=== PATIENT | female | born 1995 | race Caucasian/White ===

== ENCOUNTER 2019-01-10 08:52 | Emergency (ER) | payer BC ==
[2019-01-10 09:02] VITALS: BP 115/83
--- NOTE | 2019-01-10 09:55 | UC ---
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 Two days ago she had sudden onset of malaise, felt syncopal and vomited profusely. onset of watery diarrhea shortly after, with up to 10 loose watery stools per day, without associated blood pr mucous. She has used imodium 2 tabs x 2 doses without decrease, and has stayed on a liquid diet without improvement. Feels hungry. - History of Current Complaint Chief Complaint: UCGI Stated Complaint: GI ISSUES Time Seen by Provider: 01/10/19 09:44 Hx Obtained From: Patient Hx Last Menstrual Period: 01/03/19 Onset/Duration: Sudden Onset Timing: Intermittent Episodes Lasting: - minutes Onset Severity: Moderate Pain Intensity: 3 Associated Signs & Symptoms: Positive: Decreased Oral Intake, Nausea - Allergy/Home Medications Allergies/Adverse Reactions: Allergies Allergy/AdvReac Type Severity Reaction Status Date / Time latex Allergy Intermediate Itching Verified 01/10/19 09:02 Home Medications: Home Medications Etonogestrel [Nexplanon] 68 mg IMPLANT ONCE 01/10/19 [History Confirmed 01/10/19 ] Omeprazole 20 mg PO DAILY WITH MEAL 01/10/19 [History Confirmed 01/10/19] PMH/Surg Hx/FS Hx/Imm Hx Previously Healthy: Yes GI/ History: Gastroesophageal Reflux - Surgical History Surgical History: None - Family History Known Family History: Positive: Non-Contributory - Social History Occupation: Student Lives: Dormitory/Roommates Alcohol Use: Rare Substance Use Type: None Smoking Status (MU): Light Every Day Tobacco Smoker Review of Systems All Other Systems Reviewed And Are Negative: Yes Constitutional: Positive: Fatigue Respiratory: Positive: Other - recent URI, symptoms x 3 to 4 days. No recent use of antibiotics. Gastrointestinal: Positive: Diarrhea, Nausea Genitourinary: Positive: Negative, Other - regular cycles with progesterone implant. Is Patient Immunocompromised?: No Physical Exam Triage Information Reviewed: Yes Appearance: Well-Appearing, No Pain Distress, Other: - well hydrated. Vital Signs: Initial Vital Signs Temp 97.5 F 01/10/19 08:56 Pulse 95 01/10/19 08:56 Resp 18 01/10/19 08:56 BP 115/83 01/10/19 08:56 Pulse Ox 97 01/10/19 08:56 Eye Exam: Normal ENT: Positive: Pharynx normal Respiratory: Positive: Lungs clear, Normal breath sounds Cardiovascular: Positive: RRR, No Murmur Abdomen Description: Positive: Nontender, No Organomegaly, Soft Bowel Sounds: Positive: Present Musculoskeletal Exam: Normal Neurological Exam: Normal Psychological Exam: Normal Skin Exam: Normal Course/Dx - Course Course Of Treatment: Increase use of imodium, diarrhea diet. Discussed advanceing diet at this time. - Diagnoses Provider Diagnosis: Gastroenteritis Discharge ED - Sign-Out/Discharge Documenting (check all that apply): Patient Departure All imaging exams completed and their final reports reviewed: No Studies - Discharge Plan Condition: Stable Disposition: HOME Patient Education Materials: Gastroenteritis (ED), Nutrition Tips for Relief of Diarrhea (ED) Referrals: Joellen Olvera MD [Primary Care Provider] - Additional Instructions: Please submit stools for culture once obtained. Increase the use of imodium, using it after each loose stool today, to a maximum of 4 tablets. Advance your diet to include toast, poached or roasted fish and meat, steamed or poached fruits and vegetables. Avoid fried and fatty foods. You will be notified if stool cultures are positve for bacterial infection. Followup if you have increasing abdominal pain or fever. - Billing Disposition and Condition Condition: STABLE Disposition: Home
== END 2019-01-10 10:30 | disposition home or self-care (01) ==
LOC: UCEAST 08:52
DX: K52.9 Noninfective gastroenteritis and colitis, unspecified (principal); K21.9 Gastro-esophageal reflux disease without esophagitis; F17.210 Nicotine dependence, cigarettes, uncomplicated; Z91.040 Latex allergy status
CPT/HCPCS: 99201; G0463